=== PATIENT | male | born 1990 | race Caucasian/White ===

== ENCOUNTER 2018-04-25 09:05 | Emergency (ER) | payer MEDICAID ==
[~2018-04-25] VITALS: Ht 175.3 cm; Wt 76.3 kg
[2018-04-25 09:10] VITALS: BP 168/104
--- NOTE | 2018-04-25 09:23 | NUR ---
PT AMBULATED TO ER BED 07
--- NOTE | 2018-04-25 09:25 | NUR ---
27YO M BIB SELF FOR ABD PAIN. PT STATES " I THINK I MIGHT BE HAVING AN ANXIETY ATTACK". PT ADMITS TO MARIJUANA USE. PT APPEARS PARINOID. PT IS AAOX4, AB SOFT, ACTIVE BS X 4 QUAD, LBM YESTERDAY, BED DOWN, BEDRAIL UP X 1, ER MD AWARE AND NOTIFIED OF PT STATUS. HX: ANXIETY, ASTHMA MEDS: NONE
--- NOTE | 2018-04-25 09:40 | NUR ---
Patient being evaluated by physician at bedside.
[2018-04-25 09:51] VITALS: BP 159/79
--- NOTE | 2018-04-25 09:51 | NUR ---
Patient discharged with v/s stable. Written and verbal after care instructions given and explained. Patient verbalized understanding. Ambulatory with steady gait. All questions addressed prior to discharge. Advised to follow up with PMD.
[2018-04-25 10:45] LABS: BARBITURATE, URINE NEG. ng/ml (NEG <=200); BENZODIAZEPINE, URINE NEG. ng/mL (NEG <=200); CANNABINOID, URINE POS. ng/mL (NEG <=50); COCAINE, URINE NEG. ng/mL (NEG <=300); OPIATE, URINE NEG. ng/mL (NEG <=2000); PHENCYCLIDINE SCREEN,URINE NEG. ng/mL (NEG <=25)
== END 2018-04-25 09:51 | disposition home or self-care (01) ==
LOC: MED 09:05
DX: F41.0 Panic disorder [episodic paroxysmal anxiety] (principal); J45.909 Unspecified asthma, uncomplicated; F12.10 Cannabis abuse, uncomplicated
CPT/HCPCS: 80305; 81002; 99283